=== PATIENT | female | born 1945 | race Caucasian/White ===

== ENCOUNTER 2020-05-10 12:49 | Emergency (ER) | payer MEDICARE, SELFPAY ==
[2020-05-10 13:21] VITALS: BP 196/77; PULSE 77; RESP 21; TEMP 37.6; O2SAT 98
--- NOTE | 2020-05-10 13:27 | ED.DENTAL ---
HPI - Dental/Oral General Chief complaint: Dental/Oral Stated complaint: toooth pain Time Seen by Provider: 05/10/20 13:22 Source: patient and RN notes reviewed Mode of arrival: ambulatory Limitations: no limitations History of Present Illness HPI Narrative: 75-year-old female presents concern for left dental pain. Reports posterior upper and lower dental pain. Reports That His Teeth. She Denies Any New Dental Injury or Trauma. Denies Foul Taste in Her Mouth, Difficulty Swallowing, Fever, Malaise. Reports She Has a Dentist Appointment on Tuesday. MD Complaint: tooth pain Related Data Home Medications Medication Instructions Recorded Confirmed No Home Medications 05/10/20 05/10/20 Allergies Allergy/AdvReac Type Severity Reaction Status Date / Time latex Allergy Swelling Verified 05/10/20 13:23 Sulfa (Sulfonamide Allergy Dyspnea / Verified 05/10/20 13:24 Antibiotics) SOB Review of Systems Review of Systems: Narrative: CONSTITUTIONAL: Denies malaise, chills, sweats, or fever. EYES: Denies visual changes, redness, or discharge. ENT: Denies rhinorrhea, congestion, sinus pain, otalgia or sore throat. Reports left dental pain CARDIOVASCULAR: Denies chest pain, palpitations, or edema. RESPIRATORY: Denies dyspnea. GASTROINTESTINAL: Denies abdominal pain, nausea, vomiting SKIN: Denies bruising, redness MUSCULOSKELETAL: Denies myalgia. NEUROLOGIC: Denies numbness, weakness, or headache. All systems reviewed & are unremarkable except as noted in HPI and below PMFSH Comments At time of signature, agree with nursing past medical, surgical, social and family history. There is no relevant family history pertinent to the presenting complaint Exam Narrative: Exam Narrative: GENERAL: Well-appearing, well-nourished, and in no acute distress. HEAD: Normocephalic, atraumatic. EYES: PERRLA, conjunctivae clear ENT: Nares clear, turbinates pink, no rhinorrhea or epistaxis. Mucous membranes moist. Oropharynx without edema, erythema or lesions. Tonsils not enlarged and without exudate. No periapical abscess, mild gingival erythema near tooth 15 and 18 NECK: Supple. CHEST: No respiratory distress. Clear to auscultation. No bony deformities, no asymmetry. Speaks in full sentences. HEART: Regular rate and rhythm. No murmur heard. SKIN: Warm, dry, no rash. NEURO: Alert and oriented x3. PSYCH: Normal mood and affect Course Course Emergency Course: Patient is aware of diagnosis, understands and agrees to treatment plan. Anticipatory guidance given. Patient agrees to follow-up as directed and is aware of reasons to seek care at the emergency department. Portions of this record may have been created with voice recognition software Vital Signs Vital signs: Vital Signs Temperature 99.6 F 05/10/20 13:21 Pulse Rate 77 05/10/20 13:21 Respiratory Rate 21 H 05/10/20 13:21 Blood Pressure 196/77 H 05/10/20 13:21 Pulse Oximetry 98 05/10/20 13:21 Temperature 99.6 F 05/10/20 13:21 Pulse Rate 77 05/10/20 13:21 Respiratory Rate 21 H 05/10/20 13:21 Blood Pressure 196/77 H 05/10/20 13:21 Pulse Oximetry 98 05/10/20 13:21 Reviewed. MDM - Dental/Oral MDM Narrative Medical decision making narrative: Patients pain and complaint coupled with physical findings are consistant with dentalgia. There are no focal signs of space occupying lesions that are compromising to the airway; no dysphagia, odynophagia, dysphonia, or dyspnea. No uvular deviation or soft palate edema. Patient is non-toxic appearing. The floor of the mouth is soft with no signs of Dat's Angina; no induration below mandible, no neck pain. Patient is without trismus or drooling and able to swallow secretions. Patient is felt appropriate for discharge home with dental follow up. Critical Care Time Critical Care Time Critical Care Time: No Discharge Plan Discharge Clinical Impression: Toothache Patient Disposition: Home, Self-Care Co
== END 2020-05-10 13:33 | disposition home or self-care (01) ==
PROVIDERS: Emergency Provider Nurse Practitioner; PCP Family Medicine Adolescent Medicine
DX: K08.89 Other specified disorders of teeth and supporting structures (principal)
CPT/HCPCS: 99203; G0463

== ENCOUNTER 2021-02-28 12:55 | Emergency (ER) | payer MEDICARE, SELFPAY ==
--- NOTE | ~2021-02-28 | CT_ITS ---
EXAMINATION: CT abdomen pelvis w con DATE: 02/28/2021 16:23 INDICATION: Abdominal pain with vomiting TECHNIQUE: Computed tomography (CT) of the abdomen and pelvis was performed with 100 cc Omnipaque 350 intravenous contrast. The dose-length product was 608.84 mGy-cm. Automated exposure control and iter ative reconstruction technique were employed. COMPARISON: None. FINDINGS: Lung bases are unremarkable. No significant pleural or pericardial effusion. Heart size nor mal. Moderate size hiatal hernia with thickening of the distal esophagus. There is thickening of the pylorus and jejunum. Findings suspicious for gastroenteritis. The liver, spleen, pancreas, adrenal gl ands and right kidney are unremarkable. There is a nonobstructing left renal stone. There are dilated small bowel loops with air-fluid levels, most likely ileus. No definite transition point identified. Mild atherosclerosis without aneurysm. No lymphadenopathy. Uterus is likely surgically absent. Moder ate lumbar spondylosis particularly at L1-2 and L2-3. There is fat-containing left inguinal hernia. S mall fat-containing umbilical hernia. IMPRESSION: 1. Abnormal thickening of the distal esophagus, gastric pylorus and jejunum, suspicious for gastroent eritis/esophagitis. 2: There is mildly distended fluid-filled distal small bowel with air-fluid levels. No definitive tra nsition point identified. Findings most likely ileus. Partial obstruction less favored. 3: Hiatal hernia. 4: Nonobstructing left nephrolithiasis. Reviewed, dictated and finalized at location A. IMPRESSION: 1. Abnormal thickening of the distal esophagus, gastric pylorus and jejunum, leon spicious for gastroenteritis/esophagitis. 2: There is mildly distended fluid-filled distal small bowel with air-fluid lev els. No definitive transition point identified. Findings most likely ileus. Par tial obstruction less favored. 3: Hiatal hernia. 4: Nonobstructing left nephrolithiasis.
[2021-02-28 13:31] VITALS: BP 151/76; PULSE 76; RESP 16; TEMP 36.6; O2SAT 99
[2021-02-28 14:06] LABS: Add Urine Microscopic? YES; Appearance Urine Clear (Clear); Bilirubin Urine Negative (Negative); Blood Urine 1+ (Negative); Color Urine Straw (Yellow); Glucose Urine UA Negative (Negative); Ketones Urine Negative (Negative); Leukocyte Esterase Ur Negative LEU/UL (Negative); Mucus Urine Rare /lpf; Nitrate Urine Negative (Negative); Protein Urine Negative (Negative); RBC Urine 0-2 /hpf (0-2); Specific Grav Ur 1.013 (1.001-1.035); Squamous Epithelial Cell Urine Rare /hpf (Few); Urobilinogen Urine Negative mg/dL (<2.0); WBC Urine 0-3 /hpf
[2021-02-28 14:07] LABS: Basophils Absolute Auto 0.1 K/mm3 (0.0-0.1); Basophils Percent Auto 0.4 % (0.2-1.2); Eosinophils Absolute Auto 0.2 K/mm3 (0-0.3); Eosinophils Percent Auto 1.5 % (0-4.4); Hematocrit 44.7 % (37.0-47.0); Hemoglobin 15.1 g/dL (12.0-15.0); Immature Granulocyte Absolute 0.05 K/mm3 (0.00-0.031); Immature Granulocyte Percent A 0.4 % (0-0.5); Lymphocytes Absolute Auto 1.73 K/mm3 (0.9-3.2); Lymphocytes Percent Auto 13.2 % (18.3-44.2); Mean Corpuscular HGB Conc 33.8 g/dl (32-36); Mean Corpuscular Hemoglobin 32.8 pg (26-34); Mean Platelet Volume 10.1 fl (7.4-10.4); Monocytes Absolute Auto 0.8 K/mm3 (0.1-0.6); Monocytes Percent Auto 5.7 % (2.6-8.5); Neutrophils Absolute Auto 10.3 K/mm3 (1.3-6.7); Neutrophils Percent Auto 78.8 % (45.5-73.1); Platelet Count Result 251 k/mm3 (150-375); Red Blood Count 4.61 M/mm3 (4.2-5.4); Red Cell Distribution Width 13.1 % (11.5-14.5); White Blood Count 13.1 K/mm3 (4.5-10.0)
[2021-02-28 14:24] LABS: Alanine Aminotransferase 14 U/L (4-35); Albumin Level 4.3 g/dL (3.5-5.1); Alkaline Phosphatase 60 U/L (38-126); Anion Gap 11 mmol/L (8-16); Aspartate Amino Transferase 22 U/L (14-36); Bilirubin,Total 0.4 mg/dL (0.2-1.3); Blood Urea Nitrogen 16 mg/dL (7-17); Calcium 9.4 mg/dL (8.4-10.2); Carbon Dioxide 19 mmol/L (22-30); Chloride 106 mmol/L (98-107); Estimated CRCL calculation 56 ml/min; Estimated Glomerular Filt Rate > 60; Glucose 114 mg/dL (65-110); Lipase 74 U/L (23-300); Potassium 4.8 mmol/L (3.4-5.0); Sodium 136 mmol/L (137-145)
[2021-02-28 15:46] VITALS: BP 175/83; PULSE 78; RESP 20; O2SAT 100
[2021-02-28] MEDS: SODIUM CHLORIDE 0.9% IV 1,000 ML 999 ML IV CONT (16:43)
[2021-02-28] MEDS: ONDANSETRON INJ 4 MG/2 ML VIAL IV PUSH (16:43)
--- NOTE | 2021-02-28 16:43 | ED.GENADULT ---
HPI - General Adult General Chief complaint: Nausea/Vomiting/Diarrhea Stated complaint: vomiting, diarrhea Time Seen by Provider: 02/28/21 15:59 Source: patient Mode of arrival: EMS Limitations: no limitations History of Present Illness HPI narrative: Patient is 75 years old white female presented to the ED with diarrhea started 8 days ago, watery, on average 8 episodes a day. Patient denies any fever, chills, new medications recently or antibiotic use over the last 4 weeks. Patient also complaining of, complaining of lower abdominal cramps. Patient is fully vaccinated for COVID-19. Patient vomited maximum twice over the last 8 days. Related Data Allergies Allergy/AdvReac Type Severity Reaction Status Date / Time ciprofloxacin Allergy Mild Unknown Verified 02/28/21 15:48 mold Allergy Unknown Unknown Verified 02/28/21 15:48 latex Allergy Swelling Verified 08/13/20 10:02 Sulfa (Sulfonamide Allergy Dyspnea / Verified 08/13/20 10:02 Antibiotics) SOB Review of Systems Review of Systems: CONSTITUTIONAL: Denies fever, chills, or sweats. EYES: Denies visual changes, redness, or discharge. ENT: Denies rhinorrhea, congestion, sore throat, or otalgia. CARDIOVASCULAR: Denies chest pain, palpitations, or edema. RESPIRATORY: Denies cough or dyspnea. GASTROINTESTINAL: Denies abdominal pain, nausea, vomiting, or diarrhea. GENITOURINARY: Denies dysuria or hematuria. SKIN: Denies rash or itching. MUSCULOSKELETAL: Denies back pain, joint pain, or myalgia. NEUROLOGIC: Denies headache, numbness, or weakness. PSYCHIATRIC: Denies anxiety or depression. PMFSH Family History Family History Father Cerebrovascular accident Social History Social History Smoking status: Heavy tobacco smoker Alcohol intake: never Exam Narrative: General appearance: Well-developed, well-nourished Skin: Normal color Head: Normocephalic, nontraumatic Eyes: Clear conjunctiva ENT: Oropharynx normal, ears normal, nose normal Neck: Supple, nontender Chest and respiratory: Airway patent, no respiratory distress, no accessory muscle use Heart: Regular rate/rhythm Abdomen: Soft, nontender, no organomegaly, hyperactive bowel sounds Vascular: Normal peripheral pulses, normal capillary refill. Musculoskeletal: Normal range of motion, nontender back Neurologic: Alert and oriented ?3, TECHNICAL DELIVERY MANAGER is normal as tested, no gross motor deficit Course Course Emergency Course: Improving Vital Signs Vital signs: Vital Signs Temperature 36.6 C 02/28/21 13:31 Pulse Rate 76 02/28/21 13:31 Respiratory Rate 16 02/28/21 13:31 Blood Pressure 151/76 H 02/28/21 13:31 Pulse Oximetry 99 02/28/21 13:31 Temperature 36.6 C 02/28/21 13:31 Pulse Rate 78 02/28/21 15:46 Respiratory Rate 20 02/28/21 15:46 Blood Pressure 175/83 H 02/28/21 15:46 Pulse Oximetry 100 02/28/21 15:46 Medical Decision Making [facility] Narrative Medical decision making narrative: Gastroenteritis Vital Signs Vital Signs: Vital Signs Temperature 36.6 C 02/28/21 13:31 Pulse Rate 76 02/28/21 13:31 Respiratory Rate 16 02/28/21 13:31 Blood Pressure 151/76 H 02/28/21 13:31 Pulse Oximetry 99 02/28/21 13:31 Temperature 36.6 C 02/28/21 13:31 Pulse Rate 78 02/28/21 15:46 Respiratory Rate 20 02/28/21 15:46 Blood Pressure 175/83 H 02/28/21 15:46 Pulse Oximetry 100 02/28/21 15:46 Lab Data Result diagrams: 02/28/21 13:46 02/28/21 13:46 Labs: Lab Results 02/28/21 02/28/21 02/28/21 Range/Units 13:46 13:46 13:53 WBC 13.1 H (4.5-10.0) K/m
[2021-02-28 17:13] VITALS: BP 168/89; PULSE 71; RESP 20; O2SAT 100
== END 2021-02-28 17:14 | disposition home or self-care (01) ==
PROVIDERS: Emergency Medicine; Emergency Provider Emergency Medicine; PCP Family Medicine Adolescent Medicine
DX: R19.7 Diarrhea, unspecified (principal)
CPT/HCPCS: 36415; 74177; 80053; 81001; 83690; 85025; 96361; 96374; 99284; J2405; J7030; Q9967

== ENCOUNTER 2023-07-07 01:15 | Emergency (ER) | payer MEDICARE, SELFPAY ==
--- NOTE | ~2023-07-07 | XR_ITS ---
EXAMINATION: XR pelvis 1-2V DATE: 07/07/2023 03:04 INDICATION: Pelvis injury and pain. TECHNIQUE: An anteroposterior view of the pelvis was obtained. COMPARISON: Pelvis radiograph 09/12/2005 FINDINGS: Bone alignment is normal. No fracture. There is mild osteoarthritis of the hips. IMPRESSION: 1. Mild osteoarthritis of the hips. Reviewed, dictated and finalized at location E. IRONER
--- NOTE | ~2023-07-07 | CT_ITS ---
EXAMINATION: CT cervical spine wo con DATE: 07/07/2023 03:11 INDICATION: Head injury. TECHNIQUE: Computed tomography (CT) of the cervical spine was performed without intravenous contrast. Automated exposure control and iterative reconstruction technique were employed. The dose-length pro duct was 454.01 mGy-cm. COMPARISON: None FINDINGS: There is kyphosis of cervical spine. Vertebral body heights are normal. There is severely d ecreased disc height from C4-C5 through C6-C7. The following disc levels are specifically discussed: C2-C3: There is severe bilateral uncovertebral joint osteoarthritis. There is mild right and severe l eft facet joint osteoarthritis. There is mild left neural foraminal stenosis. There is no central can al stenosis. C3-C4: There is mild bilateral uncovertebral joint osteoarthritis. There is mild bilateral facet join t osteoarthritis. There is mild right neural foraminal stenosis. There is no central canal stenosis. C4-C5: There is severe right and moderate left uncovertebral joint osteoarthritis. There is moderate right and severe left facet joint osteoarthritis. There is mild bilateral neural foraminal stenosis. There is mild central canal stenosis. C5-C6: There is severe bilateral uncovertebral joint osteoarthritis. There is mild right and moderate left facet joint osteoarthritis. There is mild bilateral neural foraminal stenosis. There is mild ce ntral canal stenosis. C6-C7: There is ankylosis of the uncovertebral joints with severe hypertrophy. There is mild bilatera l facet joint osteoarthritis. There is mild bilateral neural foraminal stenosis. There is mild centra l canal stenosis. C7-T1: There is no uncovertebral joint osteoarthritis. There is severe bilateral facet joint osteoart hritis. There is mild bilateral neural foraminal stenosis. There is no central canal stenosis. IMPRESSION: 1. No fracture. 2. Severe cervical spondylosis. Reviewed, dictated and finalized at location E. TRONIC PUBLISHING SPECIALIST
--- NOTE | ~2023-07-07 | XR_ITS ---
EXAMINATION: XR chest 1V DATE: 07/07/2023 03:04 INDICATION: Trauma. Chest pain. TECHNIQUE: A single frontal view of the chest was obtained. COMPARISON: CT abdomen and pelvis 12/28/2020 FINDINGS: There is no pneumonia, pleural effusion or pneumothorax. The heart size is normal. IMPRESSION: 1. No acute cardiopulmonary disease. Reviewed, dictated and finalized at location E. LOAD DISPATCHER
--- NOTE | ~2023-07-07 | XR_ITS ---
EXAMINATION: XR wrist LT min 3V DATE: 07/07/2023 03:04 INDICATION: Left wrist injury and pain. TECHNIQUE: 4 views of left wrist were obtained. COMPARISON: None. FINDINGS: Bone alignment is normal. No fracture. There is moderate osteoarthritis of triscaphe joint and severe osteoarthritis of first carpometacarpal joint. IMPRESSION: 1. Polyarticular osteoarthritis. Reviewed, dictated and finalized at location E. PULLER
--- NOTE | ~2023-07-07 | CT_ITS ---
EXAMINATION: CT brain wo con DATE: 07/07/2023 03:11 INDICATION: Syncope. Head injury. TECHNIQUE: Computed tomography (CT) of the head was performed without intravenous contrast. The mA wa s adjusted according to patient size. Iterative reconstruction technique was employed. The dose-lengt h product was 605.33 mGy-cm. COMPARISON: Head CT 02/20/2016 FINDINGS: There are scattered areas of low attenuation in the cerebral white matter. There is no intr acranial hemorrhage, acute infarction, or abnormal intracranial mass lesion. The ventricles are milagros l in size. There is a right posterior scalp hematoma. There is mild mucosal thickening in the paranas al sinuses. The mastoid air cells are normal. There are likely changes of ocular lens replacement marion geries. IMPRESSION: 1. Worsened moderate nonspecific cerebral white matter disease, which likely represents chronic small vessel ischemic disease. Reviewed, dictated and finalized at location E. TITY MANAGEMENT DEVELOPER IMPRESSION: 1. Worsened moderate nonspecific cerebral white matter disease, which likely re presents chronic small vessel ischemic disease.
[2023-07-07 01:29] VITALS: BP 221/80; PULSE 90; RESP 16; TEMP 36.3; O2SAT 94
--- NOTE | 2023-07-07 02:41 | ECG_ITS ---
Measurements Intervals [place] Rate: 70 P: 48 AR: 132 QRS: 33 QRSD: 82 T: 45 QT: 396 QTc: 429 Interpretive Statements SINUS RHYTHM NORMAL ECG NO PREVIOUS ECG AVAILABLE FOR COMPARISON Electronically Signed On 07-07-2023 6:37:56 BOTTOM BLEACHER by Brandon Moise D.O.
--- NOTE | 2023-07-07 02:45 | ED.HEATRA ---
HPI - Head Injury General Chief complaint: Head Injury Stated complaint: fall Time Seen by Provider: 07/07/23 02:03 Source: patient and family Limitations: no limitations History of Present Illness HPI Narrative: Patient is a 78-year-old female presents to the emergency department complaining of a head injury. Patient states around midnight tonight she was quite to get her CT and does not recall what happened but woke up on the ground with a cut to the back of her head and some slight pain in that region in addition to some very mild discomfort to her left wrist. Patient denies history of syncope. Patient denies chest pain, difficulty breathing, abdominal pain, nausea, vomiting, numbness, weakness, urinary incontinence, stool incontinence, recent illness, use of blood thinners, paresthesias, loose or chipped teeth, vision changes, melena, hematochezia, diarrhea. Patient does not remember last tetanus shot was. Patient has been ambulatory since the event without difficulty. Patient denies neck pain or back pain. Related Data Allergies Allergy/AdvReac Type Severity Reaction Status Date / Time ciprofloxacin Allergy Mild Unknown Verified 01/03/23 12:36 latex Allergy Unknown Swelling Verified 01/03/23 12:36 mold Allergy Unknown Unknown Verified 01/03/23 12:36 Sulfa (Sulfonamide Allergy Unknown Dyspnea / Verified 01/03/23 12:36 Antibiotics) SOB oxycodone [From OxyContin] AdvReac Unknown Unknown Verified 01/03/23 12:36 Review of Systems Review of Systems: A 10 system review of systems was completed on the patient and is negative except for what is stated in the HPI. Nursing and ancillary documentation was reviewed. [facility] Past Medical History Medical History Hx of fibrocystic disease of breast Removal Surgical History Surgical History Corneal transplant status History of hysterectomy with oophorectomy Family History Family History Father Cerebrovascular accident Acute myocardial infarction Diabetes mellitus Depression Heart disease Hypertension Sibling Acute myocardial infarction Depression Hypertension Son Asthma Mother Lung cancer Depression Grandparent Depression Social History Social History (Updated 02/03/22 @ 13:55 by Jyothi Mann MA) Smoking status: Heavy tobacco smoker Tobacco type: cigarettes Second hand tobacco smoke exposure: Yes Alcohol intake: never Substance use: never Substance use type: does not use Living arrangements: alone Occupation/Education: retired Gender identity (if verbalized by the patient): Female Sexual Orientation (if Verbalized by the Patient): Straight or Heterosexual Spiritual care concerns: No Agree to blood products: Yes Comments At time of signature, I have reviewed and agree with nursing past medical, surgical, social and family history unless otherwise noted. Please see the nursing chart for further information. There is no relevant family history pertinent to the presenting complaint. Exam Narrative: CONST: No acute distress. Well nourished. HENMT: Head is normocephalic. Moist mucous membranes. No posterior oropharynx erythema. Midface stable. Small abrasion to the back of the scalp with a 2 cm superficial laceration with scant oozing blood, no foreign bodies, no palpable skull deformities, no significant swelling. EYES: No conjunctival icterus, injection, or pallor. NECK: No meningeal signs. RESP: Able to speak in full sentences. Normal respiratory effort. CTAB. CARDIO: Regular rate. Regular rhythm. 2+ DP and radial pulses bilaterally. GI: Nondistended. No tenderness to palpation. Soft. : No CVA tenderness to palpation. SKIN: No rashes or lesions noted on exposed skin. NEURO: Oriented x3. Moves all extremities. No focal neurological deficits
[2023-07-07] MEDS: MORPHINE SULFATE (*CRX) 4 MG/ML INJ 2 MG IV PUSH (03:23)
[2023-07-07] MEDS: LIDOCAINE, EPINEPHRINE, TETRACAINE VISCOUS SOLN 3 ML TOPICAL (03:23)
[2023-07-07] MEDS: TETANUS,DIPHTHERIA,AC PERTUSSIS ADULT (0.5 ML) BOOSTRIX IM (03:24)
[2023-07-07] MEDS: SODIUM CHLORIDE 0.9% IV 1,000 ML 999 ML IV CONT (03:24)
[2023-07-07 03:31] LABS: Basophils Percent Auto 0.3 % (0.2-1.2); Eosinophils Absolute Auto 0.4 K/mm3 (0-0.3); Hematocrit 41.9 % (37.0-47.0); Hemoglobin 14.1 g/dL (12.0-15.0); Immature Granulocyte Absolute 0.09 K/mm3 (0.00-0.031); Immature Granulocyte Percent A 0.6 % (0-0.5); Lymphocytes Absolute Auto 2.58 K/mm3 (0.9-3.2); Lymphocytes Percent Auto 17.8 % (18.3-44.2); Mean Corpuscular HGB Conc 33.7 g/dl (32-36); Mean Corpuscular Hemoglobin 31.9 pg (26-34); Mean Corpuscular Volume 94.8 fl (80-100); Mean Platelet Volume 9.7 fl (7.4-10.4); Neutrophils Absolute Auto 10.3 K/mm3 (1.3-6.7); Neutrophils Percent Auto 71.3 % (45.5-73.1); Platelet Count Result 226 k/mm3 (150-375); Red Blood Count 4.42 M/mm3 (4.2-5.4); Red Cell Distribution Width 12.8 % (11.5-14.5); White Blood Count 14.5 K/mm3 (4.5-10.0)
[2023-07-07 03:43] VITALS: BP 161/81; PULSE 74; RESP 10; O2SAT 97
[2023-07-07 03:46] VITALS: BP 173/80; PULSE 77; RESP 15; O2SAT 95
[2023-07-07 03:47] LABS: Alanine Aminotransferase 24 U/L (6-35); Alkaline Phosphatase 70 U/L (38-126); Anion Gap 9 mmol/L (8-16); Aspartate Amino Transferase 28 U/L (14-36); Bilirubin,Total 0.4 mg/dL (0.2-1.3); Blood Urea Nitrogen 12 mg/dL (7-17); Carbon Dioxide 29 mmol/L (22-30); Chloride 100 mmol/L (98-107); Estimated CRCL calculation 49 ml/min; Estimated Glomerular Filt Rate > 60; Glucose 115 mg/dL (65-110); Magnesium 1.7 mg/dL (1.6-2.3); Potassium 3.9 mmol/L (3.4-5.0); Sodium 138 mmol/L (137-145)
[2023-07-07 04:15] VITALS: PULSE 74; RESP 12; O2SAT 98
[2023-07-07 04:30] VITALS: PULSE 73; RESP 13; O2SAT 97
[2023-07-07 04:45] VITALS: PULSE 71; RESP 15; O2SAT 99
== END 2023-07-07 05:46 | disposition home or self-care (01) ==
PROVIDERS: Emergency Provider Student in an Organized Health Care Education/Training Program; PCP Family Medicine Adolescent Medicine
DX: S06.9X1A Unspecified intracranial injury with loss of consciousness of 30 minutes or less, initial encounter (principal); S01.01XA Laceration without foreign body of scalp, initial encounter; S69.92XA Unspecified injury of left wrist, hand and finger(s), initial encounter; Z23 Encounter for immunization; Z94.7 Corneal transplant status; Z90.710 Acquired absence of both cervix and uterus; F17.210 Nicotine dependence, cigarettes, uncomplicated; R90.82 White matter disease, unspecified; M47.812 Spondylosis without myelopathy or radiculopathy, cervical region; M16.0 Bilateral primary osteoarthritis of hip; M19.032 Primary osteoarthritis, left wrist; W18.30XA Fall on same level, unspecified, initial encounter
CPT/HCPCS: 12001; 36415; 70450; 71045; 72125; 72170; 73110; 80053; 83735; 85025; 90471; 90715; 93005; 96361; 96374; 99284; J2270; J7030

== ENCOUNTER 2023-07-16 18:16 | Emergency (ER) | payer MEDICARE, SELFPAY ==
[2023-07-16 18:30] VITALS: BP 175/66; PULSE 85; RESP 14; TEMP 37.7; O2SAT 97
--- NOTE | 2023-07-16 18:33 | ED.GENADULT ---
HPI - General Adult General Chief complaint: Wound/Laceration Stated complaint: staple removal back of head Time Seen by Provider: 07/16/23 18:33 Source: patient, RN notes reviewed and old records reviewed Mode of arrival: ambulatory Limitations: no limitations History of Present Illness HPI narrative: 78-year-old female presents to the [facility] with requesting having her michaela removed that were placed on the 07 of July per medical record in [facility] Areas clean dry approximated. Patient has no concerns at this time. Onset (ago): day(s) (8) Related Data Allergies Allergy/AdvReac Type Severity Reaction Status Date / Time ciprofloxacin Allergy Mild Unknown Verified 07/16/23 18:18 latex Allergy Unknown Swelling Verified 07/16/23 18:18 mold Allergy Unknown Unknown Verified 07/16/23 18:18 Sulfa (Sulfonamide Allergy Unknown Dyspnea / Verified 07/16/23 18:18 Antibiotics) SOB oxycodone [From OxyContin] AdvReac Unknown Unknown Verified 07/16/23 18:18 Review of Systems Review of Systems: All systems reviewed & are unremarkable except as noted in HPI and below Constitutional: Constitutional: Reports no additional constitutional complaints Eyes: Eyes: Reports no additional eye complaints ENT: Reports system reviewed and no additional complaints, except as documented Cardiovascular: Cardiovascular: Reports no additional cardiovascular complaints, Denies chest pain and Denies dyspnea Respiratory: Respiratory: Reports no additional respiratory complaints, Denies chest congestion, Denies cough and Denies dyspnea Gastrointestinal: Gastrointestinal: Reports no additional gastrointestinal complaints, Denies abdominal pain, Denies nausea and Denies vomiting Musculoskeletal: Musculoskeletal: Reports no additional musculoskeletal complaints Integumentary/Breasts: Skin/Breast: Reports as per HPI Neurologic: Reports system reviewed and no additional complaints, except as documented Psychiatric: Psychiatric: Reports no additional psychiatric complaints Allergic/Immunologic: Allergic/Immunologic: Reports no additional allergic/immunologic complaints [facility] Past Medical History Medical History Hx of fibrocystic disease of breast Removal Surgical History Surgical History Corneal transplant status History of hysterectomy with oophorectomy Family History Family History Father Cerebrovascular accident Acute myocardial infarction Diabetes mellitus Depression Heart disease Hypertension Sibling Acute myocardial infarction Depression Hypertension Son Asthma Mother Lung cancer Depression Grandparent Depression Social History Social History Smoking status: Heavy tobacco smoker Tobacco type: cigarettes Second hand tobacco smoke exposure: Yes Alcohol intake: never Substance use: never Substance use type: does not use Living arrangements: alone Occupation/Education: retired Gender identity (if verbalized by the patient): Female Sexual Orientation (if Verbalized by the Patient): Straight or Heterosexual Spiritual care concerns: No Agree to blood products: Yes Comments At the time of my signature, I reviewed and agree with the nursing past medical, surgical, social, and family history. There is no relevant family history pertinent to the patient complaint. Exam Const: General: cooperative, healthy appearing, comfortable, no acute distress, well developed, alert and well nourished Nutritional Appearance: well nourished Orientation/consciousness: patient oriented x3 Limitations: no limitations HENMT: Head: normal to inspection Ears: hearing grossly normal bilaterally and external ears normal Face/Nose/Sinus: Normal external nose present, Normal nares present, No
== END 2023-07-16 18:49 | disposition home or self-care (01) ==
PROVIDERS: Emergency Provider Nurse Practitioner; PCP Family Medicine Adolescent Medicine
DX: S01.01XD Laceration without foreign body of scalp, subsequent encounter (principal); X58.XXXD Exposure to other specified factors, subsequent encounter; F17.210 Nicotine dependence, cigarettes, uncomplicated; Z94.7 Corneal transplant status
CPT/HCPCS: 99211; G0463

== ENCOUNTER 2023-07-22 17:08 | Emergency (ER) | payer MEDICARE, SELFPAY ==
--- NOTE | 2023-07-22 18:54 | PC.NURSE ---
pt did not answer when called to be triaged, no answer w/ mult attempts, pt did not notify child welfare caseworker she was leaving and her exit was not witnessed
== END 2023-07-22 18:54 | disposition left against medical advice (07) ==
LOC: ANHED 18:58
PROVIDERS: PCP Family Medicine Adolescent Medicine
DX: Z53.21 Procedure and treatment not carried out due to patient leaving prior to being seen by health care provider (principal)
CPT/HCPCS: 99199

== ENCOUNTER 2023-08-11 11:08 | Emergency (ER) | payer MEDICARE, SELFPAY ==
--- NOTE | ~2023-08-11 | XR_ITS ---
EXAMINATION: XR chest 2V DATE: 08/11/2023 11:30 INDICATION: Shortness of breath and cough TECHNIQUE: Frontal and lateral views of the chest are obtained COMPARISON: 07/07/2023 FINDINGS: The lungs are free of acute opacities. No pleural effusion or pneumothorax. The cardiomedia stinal silhouette is normal. There is mild thoracic spondylosis. IMPRESSION: 1. No acute cardiopulmonary abnormality. Reviewed, dictated and finalized at location [facility] [employer]
--- NOTE | 2023-08-11 11:09 | ED.URI ---
HPI - URI/Sore Throat General Chief Complaint: Upper Respiratory Infection Stated Complaint: Sinus/SOB Time Seen by Provider: 08/11/23 11:08 Source: patient Mode of arrival: ambulatory Limitations: no limitations History of Present Illness HPI Narrative: Bev is a 78-year-old female patient presenting to the clinic today with complaints of cough, runny nose, congestion, and shortness of breath x5 days. She denies any fever or chills. Has done at home COVID testing was negative. No known exposure to anyone with COVID, flu, or strep. Denies sore throat. Rates her shortness of breath a 9/10. She is able speak in full sentences and SpO2 on room air was 97%. Current smoker. Bringing up productive phlegm- yellow. Denies any history of COPD or asthma. MD elicited complaint: cough, rhinorrhea, nasal congestion and other (Shortness of breath) Related Data Allergies Allergy/AdvReac Type Severity Reaction Status Date / Time ciprofloxacin Allergy Mild Unknown Verified 08/11/23 11:34 latex Allergy Unknown Swelling Verified 08/11/23 11:34 mold Allergy Unknown Unknown Verified 08/11/23 11:34 Sulfa (Sulfonamide Allergy Unknown Dyspnea / Verified 08/11/23 11:34 Antibiotics) SOB oxycodone [From OxyContin] AdvReac Unknown Unknown Verified 08/11/23 11:34 Review of Systems Review of Systems: Pertinent positives per HPI. Patient denies any fever, chills, rash, headache, visual changes, dizziness, chest pain, palpitations, nausea, vomiting, diarrhea, constipation, abdominal pain, or any urinary issues. PMFSH Past Medical History Medical History Hx of fibrocystic disease of breast Removal Surgical History Surgical History Corneal transplant status History of hysterectomy with oophorectomy Family History Family History Father Cerebrovascular accident Acute myocardial infarction Diabetes mellitus Depression Heart disease Hypertension Sibling Acute myocardial infarction Depression Hypertension Son Asthma Mother Lung cancer Depression Grandparent Depression Social History Social History Smoking status: Heavy tobacco smoker Tobacco type: cigarettes Second hand tobacco smoke exposure: Yes Alcohol intake: never Substance use: never Substance use type: does not use Living arrangements: alone Occupation/Education: retired Gender identity (if verbalized by the patient): Female Sexual Orientation (if Verbalized by the Patient): Straight or Heterosexual Spiritual care concerns: No Agree to blood products: Yes Comments At the time of my signature, I reviewed and agree with the nursing past medical, surgical, social, and family history. There is no relevant family history pertinent to the patient complaint. Exam Narrative: General: Well-developed, well nourished, in no apparent distress Head: Normocephalic, atraumatic Eyes: Pupils equally round and reactive to light bilaterally, EOM intact, sclera and conjunctive clear, no discharge, lids normal Ears: TMs intact and congested, ear canals clear, no drainage, grossly hearing normal. Nose: Nares patent, clear nasal discharge, no inflammation, no sinus tenderness. Mouth: Oral pharynx without lesions or masses, good dentition, MMM. Neck: Supple, trachea midline, no enlargement of anterior or posterior cervical nodes, no thyroid masses or goiter palpable. Cardio: Regular rate and rhythm, s1 and s2 normal, no murmur appreciated. Resp: Lung sounds coarse and congested, no rhonchi, rales, wheezing or rubs Course Course Emergency Course: Portions of this record may have been created with voice recognition software. Level of Care: Express Care Visit Vital Signs Vital signs: Vital signs review
[2023-08-11 11:10] VITALS: BP 157/75; PULSE 86; RESP 20; TEMP 37.2; O2SAT 97
== END 2023-08-11 12:08 | disposition home or self-care (01) ==
PROVIDERS: Emergency Provider Nurse Practitioner Family; PCP Family Medicine Adolescent Medicine
DX: J40 Bronchitis, not specified as acute or chronic (principal); J06.9 Acute upper respiratory infection, unspecified; F17.210 Nicotine dependence, cigarettes, uncomplicated; Z20.822 Contact with and (suspected) exposure to COVID-19
CPT/HCPCS: 71046; 87426; 87804; 99213; G0463